=== PATIENT | male | born 1960 | race Caucasian/White ===

== ENCOUNTER 2019-08-27 13:23 | Emergency (ER) | payer OTHER ==
[~2019-08-27] VITALS: Ht 185.4 cm; Wt 78.5 kg
[~2019-08-27 13:23] MED LIST: AMLODIPINE BESYL5 MG PO; NORCO 5-325 TA1 EACH PO; PENICILLIN V P500 MG PO; VENTOLIN HFA18 GM INH
--- OUTSIDE RECORDS SUMMARY | 2019-08-27 13:26 | XMS ---
PreManage Notification: BENJAMÍN LOCKWOOD [employer] Events No recent Security Events currently on file CRITERIA MET - [facility] - Has Care Guidelines CARE PROVIDERS FRANCISCO JAVIER WILLETT Family Medicine 03/08/2018-Current PHONE: [phone] Ester Andrade Community Health Worker 01/14/2019-Current Sherman Ortez PHONE: [phone] Saritha has no Care Guidelines for this patient. Care History Medical/Surgical 10/18/2018 [facility] - PATIENT HAS BEEN REFERRED TO [facility] CASE MANAGEMENT- [employer]- CLOSE FOLLOW UP TO ED VISIT. Jason VISIT COUNT (12 MO.) [facility] 2 JOHNNIE JohnsonLuis TOTAL 6 NOTE: Visits indicate total known visits. ED/UCC VISIT TRACKING (12 MO.) 08/27/2019 13:[address] [facility] [place] [place] TYPE: Emergency COMPLAINT: - POSSIBLE HERNIA 05/26/2019 16:52 [facility] [place] TYPE: Emergency DIAGNOSES: - DRY COUGH FEVER - Bronchitis, not specified as acute or chronic 01/14/2019 13:24 [facility] [place] TYPE: Emergency DIAGNOSES: - Alcohol abuse, uncomplicated - DT 01/13/2019 15:33 [facility] [place] TYPE: Emergency DIAGNOSES: - Alcohol use, unspecified with intoxication, uncomplicated - DETOX FROM ALCOHOL 10/17/2018 09:[address] [facility] [place] TYPE: Emergency COMPLAINT: - AMB RAPID HEART RATE DIAGNOSES: - Other fdc (current) drug therapy - Alcohol dependence with withdrawal, unspecified - Nicotine dependence, unspecified, uncomplicated - Tachycardia, unspecified - Essential (primary) hypertension 10/08/2018 20:13 [facility] [place] TYPE: Emergency DIAGNOSES: - Chronic obstructive pulmonary disease with (acute) exacerbati - ABD PAIN - Unilateral inguinal hernia, without obstruction or gangrene, INPATIENT VISIT TRACKING (12 MO.) No inpatient visits to display in this time frame [email or web address]
[2019-08-27] MEDS ORDERED: LISINOPRIL5 MG (13:43)
== END 2019-08-27 15:49 | disposition home or self-care (01) ==
LOC: ED 13:23
DX: K40.20 Bilateral inguinal hernia, without obstruction or gangrene, not specified as recurrent (principal); I10 Essential (primary) hypertension; J44.9 Chronic obstructive pulmonary disease, unspecified; F17.200 Nicotine dependence, unspecified, uncomplicated; Z79.899 Other long term (current) drug therapy
CPT/HCPCS: 80048; 83605; 85025; 99284